=== PATIENT | male | born 1980 | race American Indian/Alaskan Native ===

== ENCOUNTER 2021-10-03 12:56 | Emergency (ER) | payer SELFPAY ==
[2021-10-03 13:03] VITALS: BP 159/102
--- NOTE | 2021-10-03 13:33 | Emergency Department Report ---
ED ENT HPI - General Chief complaint: Dental/Oral Stated complaint: TOOTHACHE Time Seen by Provider: 10/03/21 13:25 Source: patient Mode of arrival: Ambulatory Limitations: No Limitations - History of Present Illness Initial comments: Patient presents with left lower wisdom tooth dentalgia. He states that a couple of days ago he bit into something hard and hurt his tooth. He came in for evaluation treatment. He has had no visitors. He tried to see dentist today but was told that it would be Thursday before he could get in. There is no other trauma. Has no other complaints besides facial pain. There has been no swelling that he has noted. Patient has taken [id number] medication without symptomatic improvement. He denies sore throat or cough. There is no pain radiating into the neck. The pain in the jaw on the left is constant and aching. - Related Data Previous Rx's Medication Instructions Recorded Last Taken Type Penicillin V Potassium 500 mg PO 4XD #30 tablet 10/03/21 Unknown Rx traMADoL [Ultram 50 MG tab] 50 mg PO Q6HR PRN #20 tablet 10/03/21 Unknown Rx Allergies Allergy/AdvReac Type Severity Reaction Status Date / Time No Known Allergies Allergy Unverified 10/03/21 13:00 ED Dental HPI - General Chief complaint: Dental/Oral Stated complaint: TOOTHACHE Time Seen by Provider: 10/03/21 13:25 Source: patient Mode of arrival: Ambulatory Limitations: No Limitations - Related Data Previous Rx's Medication Instructions Recorded Last Taken Type Penicillin V Potassium 500 mg PO 4XD #30 tablet 10/03/21 Unknown Rx traMADoL [Ultram 50 MG tab] 50 mg PO Q6HR PRN #20 tablet 10/03/21 Unknown Rx Allergies Allergy/AdvReac Type Severity Reaction Status Date / Time No Known Allergies Allergy Unverified 10/03/21 13:00 ED Review of Systems ROS: Stated complaint: TOOTHACHE Other details as noted in HPI Comment: All other systems reviewed and negative Constitutional: denies: fever Eyes: denies: vision change ENT: as per HPI. denies: ear pain Respiratory: denies: cough Cardiovascular: denies: chest pain Endocrine: denies: unexplained weight loss Gastrointestinal: denies: abdominal pain Genitourinary: denies: dysuria Musculoskeletal: denies: back pain Skin: denies: rash Neurological: headache Hematological/Lymphatic: denies: swollen glands ED Past Medical Hx - Past Medical History Previous Medical History?: No - Surgical History Past Surgical History?: No - Family History Family history: no significant - Medications Home Medications: Home Medications Medication Instructions Recorded Confirmed Last Taken Type Penicillin V Potassium 500 mg PO 4XD #30 tablet 10/03/21 Unknown Rx traMADoL [Ultram 50 MG tab] 50 mg PO Q6HR PRN #20 tablet 10/03/21 Unknown Rx ED Physical Exam - General Limitations: No Limitations, Other ( Pulse ox noted and normal) General appearance: alert, in no apparent distress - Head Head exam: Present: atraumatic, normocephalic, normal inspection - Eye Eye exam: Present: normal appearance, EOMI. Absent: scleral icterus - ENT ENT exam: Present: mucous membranes moist, normal external ear exam, other ( diffuse dental caries with dentalgia involving the left lower wisdom tooth. It is fractured with visible pulp noted. There is gingival erythema associated with this. This is tender for the patient.) - Neck Neck exam: Present: normal inspection - Respiratory Respiratory exam: Absent: respiratory distress - Cardiovascular Cardiovascular Exam: Absent: JVD - Extremities Exam Extremities exam: Present: normal capillary refill - Back Exam Back exam: Present: full ROM - Neurological Exam Neurological exam: Present: alert, oriented X3, normal gait - Psychiatric Psychiatric exam: Present: normal affect, normal mood - Skin Skin exam: Present: warm, dry ED Course Vital Signs 10/03/21 13:01 Temperature 98.2 F Pulse Rate 84 Respiratory 18 Rate Blood Pressure 159/102 [Right] O2 Sat by Pulse 99 Oximetry - Reevaluation(s) Reevaluation #1: 10/03/21 13:36 Patient was discharged ED Medical Decision Making - Medical Decision Making patient presents with dentalgia. He has evidence of dental caries diffusely with concern for apical alveolar abscess involving the left lower wisdom tooth. Patient was referred to the dentist. There is no buccal cellulitis or facial abscess noted. He does not require emergent OMFS intervention. He was treated with antibiotics and analgesics and referred. Critical Care Time: No Critical care attestation.: If time is entered above; I have spent that time in minutes in the direct care of this critically ill patient, excluding procedure time. ED Disposition Clinical Impression: Apical alveolar abscess, Dental caries Disposition: 01 HOME / SELF CARE / HOMELESS Is pt being admited?: No Condition: Stable Instructions: Dental Abscess, Preventive Dental Care, Adult Additional Instructions: HAVE A SOFT DIET. DRINK WATER. SEE A DENTIST. RETURN FOR PROBLEMS. SEE YOUR REGULAR DOCTOR NEEDED. Prescriptions: Penicillin V Potassium 500 mg PO 4XD #30 tablet traMADoL [Ultram 50 MG tab] 50 mg PO Q6HR PRN #20 tablet PRN Reason: Pain
== END 2021-10-03 13:45 | disposition home or self-care (01) ==
LOC: ED 12:56
DX: K04.7 Periapical abscess without sinus (principal); K02.9 Dental caries, unspecified
CPT/HCPCS: 99282

== ENCOUNTER 2022-02-26 16:56 | Emergency (ER) | payer SELFPAY ==
[2022-02-26 19:34] LABS: Bilirubin,Urine NEG (Negative); Blood,Urine NEG (Negative); Color,Urine Straw (Yellow); Mucus,Urine FEW /HPF; Protein,Urine <15 mg/dL mg/dL (Negative); RBC,Urine < 1.0 /HPF (0.0-6.0); Urobilinogen,Urine < 2.0 mg/dL (<2.0); WBC,Urine < 1.0 /HPF (0.0-6.0)
--- NOTE | 2022-02-26 19:44 | Emergency Department Report ---
ED Male HPI - General Chief complaint: Urogenital-Male Stated complaint: POSS STD Time Seen by Provider: 02/26/22 19:39 Source: patient Mode of arrival: Ambulatory Limitations: No Limitations - History of Present Illness Initial comments: 41 Y M with no significant PMH report exposure to STD , reports his contracted STD and they had sex without protection. Patient reports no other symptoms . denies any penile D/C , no dysuria, and no abdominal pain. Severity scale (0 -10): 0 denies other symptoms. denies: discharge, swelling, urinary retention, blood in urine, dysuria, fever, nausea/vomiting - Related Data Sexually active: Yes Previous Rx's Medication Instructions Recorded Last Taken Type Penicillin V Potassium 500 mg PO 4XD #30 tablet 10/03/21 Unknown Rx traMADoL [Ultram 50 MG tab] 50 mg PO Q6HR PRN #20 tablet 10/03/21 Unknown Rx DOXYCYCLINE Hyclate [Vibramycin 100 mg PO Q12HR 7 Days #14 capsule 02/26/22 Unknown Rx CAP] Allergies Allergy/AdvReac Type Severity Reaction Status Date / Time No Known Allergies Allergy Unverified 10/03/21 13:00 ED Review of Systems ROS: Stated complaint: POSS STD Other details as noted in HPI Constitutional: denies: chills, fever Eyes: denies: eye pain, eye discharge, vision change ENT: denies: ear pain, throat pain Respiratory: denies: cough, shortness of breath, wheezing Cardiovascular: denies: chest pain, palpitations Endocrine: no symptoms reported Gastrointestinal: denies: abdominal pain, nausea, diarrhea Genitourinary: denies: urgency, dysuria Musculoskeletal: denies: back pain, joint swelling, arthralgia Skin: denies: rash, lesions Neurological: denies: headache, weakness, paresthesias Psychiatric: denies: anxiety, depression Hematological/Lymphatic: denies: easy bleeding, easy bruising ED Past Medical Hx - Past Medical History Previous Medical History?: No - Medications Home Medications: Home Medications Medication Instructions Recorded Confirmed Last Taken Type Penicillin V Potassium 500 mg PO 4XD #30 tablet 10/03/21 Unknown Rx traMADoL [Ultram 50 MG tab] 50 mg PO Q6HR PRN #20 tablet 10/03/21 Unknown Rx DOXYCYCLINE Hyclate [Vibramycin 100 mg PO Q12HR 7 Days #14 capsule 02/26/22 Unknown Rx CAP] ED Physical Exam - General Limitations: No Limitations General appearance: alert, in no apparent distress - Head Head exam: Present: atraumatic, normocephalic - Eye Eye exam: Present: normal appearance - ENT ENT exam: Present: mucous membranes moist - Neck Neck exam: Present: normal inspection - Respiratory Respiratory exam: Present: normal lung sounds bilaterally. Absent: respiratory distress - Cardiovascular Cardiovascular Exam: Present: regular rate, normal rhythm. Absent: systolic murmur, diastolic murmur, rubs, gallop - GI/Abdominal GI/Abdominal exam: Present: soft, normal bowel sounds - Rectal Rectal exam: Present: deferred - Extremities Exam Extremities exam: Present: normal inspection - Back Exam Back exam: Present: normal inspection - Neurological Exam Neurological exam: Present: alert, oriented X3 - Psychiatric Psychiatric exam: Present: normal affect, normal mood - Skin Skin exam: Present: warm, dry, intact, normal color. Absent: rash ED Course Vital Signs 02/26/22 02/26/22 17:32 20:14 Temperature 98.6 F Pulse Rate 65 72 Respiratory 16 16 Rate Blood Pressure 181/118 158/94 [Left] O2 Sat by Pulse 100 100 Oximetry ED Medical Decision Making - Medical Decision Making No acute process noted in UA patient treated with IM Rocephin 500mg and oral doxy 100mg 7 days. GC urine collected by nurse initial Bp was elevated - denies hx of HTN , no chest pain, no HURST reported, no w eakness noted. BP lowered on recheck at 158/94 - likely white coat syndrome - patient informed to follow up with his pcp. patent agrees with plan of care and verbalized understanding. Lab Results 02/26/22 Range/Units Unknown Urine Color Straw (Yellow) Urine Turbidity Clear (Clear) Urine pH 7.0 (5.0-7.0) Ur Specific Loman 1.015 (1.003-1.030) Urine Protein <15 mg/dl (Negative) mg/dL Urine Glucose (UA) Neg (Negative) mg/dL Urine Ketones Neg (Negative) mg/dL Urine Blood Neg (Negative) Urine Nitrite Neg (Negative) Urine Bilirubin Neg (Negative) Urine Urobilinogen < 2.0 (<2.0) mg/dL Ur Leukocyte Esterase Neg (Negative) Urine WBC (Auto) < 1.0 (0.0-6.0) /HPF Urine RBC (Auto) < 1.0 (0.0-6.0) /HPF Urine Mucus Few /HPF Vital Signs 02/26/22 02/26/22 17:32 20:14 Temperature 98.6 F Pulse Rate 65 72 Respiratory 16 16 Rate Blood Pressure 181/118 158/94 [Left] O2 Sat by Pulse 100 100 Oximetry Critical care attestation.: If time is entered above; I have spent that time in minutes in the direct care of this critically ill patient, excluding procedure time. ED Disposition Clinical Impression: Exposure to STD Disposition: 01 HOME / SELF CARE / HOMELESS Is pt being admited?: No Condition: Stable Instructions: Safe Sex Prescriptions: DOXYCYCLINE Hyclate [Vibramycin CAP] 100 mg PO Q12HR 7 Days #14 capsule Referrals: FARZANEH TRIVEDI MD [Primary Care Provider] - 3-5 Days Print Language: ICELANDIC
[2022-02-26] MEDS: DOXYCYCLINE 100 MG CAP PO ONE (19:59)
[2022-02-26] MEDS: LIDOCAINE-MPF (1%) 10 MG/1 ML VIAL 5 ML INFILTRATI ONE (19:59)
[2022-02-26 20:20] VITALS: BP 158/94
== END 2022-02-26 21:13 | disposition home or self-care (01) ==
LOC: ED 16:56
DX: Z20.2 Contact with and (suspected) exposure to infections with a predominantly sexual mode of transmission (principal)
CPT/HCPCS: 81001; 96372; 99283; J0696; J3490